=== PATIENT | male | born 2000 | race Hispanic/Latino ===

== ENCOUNTER 2022-05-09 19:00 | Emergency (ER) | payer BC ==
[~2022-05-09] VITALS: Ht 172.7 cm; Wt 81.6 kg
[~2022-05-09 19:00] MED LIST changes: -DEXAMETHASONE SOD PHOS INJ 4 MG/ML SDV ONE; -FENTANYL CITRATE/PF 100MCG/2 ML INJ ONE; -HYDROCODONE/APAP 7.5MG-325MG 1 EA TAB ONE; -LIDOCAINE HCL 2% LOCAL INJ 5 ML SDV VIAL INJ ONE; -MIDAZOLAM HCL 2 MG/2 ML VIAL ONE; -Morphine 10mg syringe 10 MG/ML INJ ONE; -ONDANSETRON HCL INJ 2MG/ML 2ML 2 MG/ML VIAL ONE; -POVIDONE IODINE 0.05% 0.05 % ML PO ONE; -PROPOFOL IV EMULSION 10 MG/ML 20 ML VIAL ONE; -ROPIVACAINE 0.5% 5 MG/ML 30 ML SDV ONE; -SEVOFLURANE INHAL SOLN 250 ML PEN BTL ONE
[2022-05-09] MEDS ORDERED: FAMOTIDINE 20 MG TAB PO ONE (19:45)
[2022-05-09] MEDS ORDERED: METHYLPREDNISOLONE SOD SUCC 125 MG/2ML VIAL IM ONE (19:45)
[2022-05-09] MEDS ORDERED: DIPHENHYDRAMINE HCL 25 MG CAP PO ONE (19:45)
== END 2022-05-09 20:28 | disposition home or self-care (01) ==
LOC: ER 19:28
DX: L50.0 Allergic urticaria (principal); T36.1X5A Adverse effect of cephalosporins and other beta-lactam antibiotics, initial encounter
CPT/HCPCS: 99283; J2930

== ENCOUNTER → 2022-05-09 | Day surgery (SDC) | payer BC ==
[~2022-05-09] MED LIST: DEXAMETHASONE SOD PHOS INJ 4 MG/ML SDV ONE; FENTANYL CITRATE/PF 100MCG/2 ML INJ ONE; HYDROCODONE/APAP 7.5MG-325MG 1 EA TAB ONE; LIDOCAINE HCL 2% LOCAL INJ 5 ML SDV VIAL INJ ONE; MIDAZOLAM HCL 2 MG/2 ML VIAL ONE; Morphine 10mg syringe 10 MG/ML INJ ONE; ONDANSETRON HCL INJ 2MG/ML 2ML 2 MG/ML VIAL ONE; POVIDONE IODINE 0.05% 0.05 % ML PO ONE; PROPOFOL IV EMULSION 10 MG/ML 20 ML VIAL ONE; ROPIVACAINE 0.5% 5 MG/ML 30 ML SDV ONE; SEVOFLURANE INHAL SOLN 250 ML PEN BTL ONE; TYLENOL EXTRA500 MG PO
[2022-05-09 13:30] VITALS: BP 107/70
== END | disposition home or self-care (01) ==
LOC: OR 07:22
PROVIDERS: ATTEND Specialist
DX: S83.512A Sprain of anterior cruciate ligament of left knee, initial encounter (principal); S83.242A Other tear of medial meniscus, current injury, left knee, initial encounter; E66.9 Obesity, unspecified; X50.1XXA Overexertion from prolonged static or awkward postures, initial encounter; Y93.66 Activity, soccer; Y99.8 Other external cause status; Z01.812 Encounter for preprocedural laboratory examination; Z20.822 Contact with and (suspected) exposure to COVID-19; Z68.33 Body mass index [BMI] 33.0-33.9, adult
CPT/HCPCS: 0223U; 29881; 29888; 36415; C1713 ×2; J0690; J1100; J2001; J2250; J2270; J2405; J2704; J2795; J3010